=== PATIENT | female | born 1955 | race Caucasian/White ===

== ENCOUNTER 2018-05-25 08:48 | Inpatient (IN) | payer OTHER ==
[~2018-05-25] VITALS: Ht 172.7 cm; Wt 84.5 kg
[2018-05-25] MEDS ORDERED: NITROGLYCERIN SINGLE TAB 0.4 MG SL PRN (09:30)
[2018-05-25] MEDS ORDERED: SODIUM CHLORIDE FLUSH 10ML SYR IVF ONE (09:30)
[2018-05-25 09:51] LABS: BASOPHILS # (AUTO) 0.05 x10^3/uL (0-0.1); BASOPHILS % (AUTO) 1 % (0-1); EOSINOPHILS # (AUTO) 0.08 x10^3/uL (0-0.4); EOSINOPHILS % (AUTO) 1 % (1-7); LYMPHOCYTES # (AUTO) 2.67 x10^3/uL (1-3.4); LYMPHOCYTES % (AUTO) 37 % (22-44); MD NO; MEAN CORPUSCULAR HEMOGLOBIN 30.9 pg (27.0-34.8); MEAN CORPUSCULAR HGB CONC 34.5 g/dL (32.4-35.8); MEAN CORPUSCULAR VOLUME 89.5 fL (80-100); MEAN PLATELET VOLUME 8.9 fL (7.4-10.4); MONOCYTES # (AUTO) 0.41 x10^3/uL (0.2-0.8); MONOCYTES % (AUTO) 6 % (2-9); NEUTROPHILS # (AUTO) 3.97 x10^3/uL (1.8-6.8); NEUTROPHILS % (AUTO) 55 % (42-75); PLATELET COUNT 246 x10^3/uL (130-400); RED BLOOD COUNT 4.38 x10^6/uL (3.82-5.3); RED CELL DISTRIBUTION WIDTH 12.1 % (9.6-15.2)
[2018-05-25 09:57] LABS: ALBUMIN 3.8 g/dL (3.4-5.0); ANION GAP 10 mmol/L (5-15); CALCIUM 9.6 mg/dL (8.5-10.1); CHLORIDE 107 mmol/L (98-107); CREATININE 0.97 mg/dL (0.55-1.02)
[2018-05-25 10:00] LABS: TROPONIN I < 0.015 ng/mL (0.000-0.045)
[2018-05-25] MEDS ORDERED: MAALOX/HYOSCYAMINE/LIDOCAINE 45 ML BTL ONE (10:08)
[2018-05-25] MEDS ORDERED: MAALOX/HYOSCYAMINE/LIDOCAINE 45 ML BTL PO ONE (10:30)
[2018-05-25] MEDS ORDERED: blood pressure PO ×2 (10:50)
[2018-05-25] MEDS ORDERED: IBUP-1223 PO (10:50)
[2018-05-25 13:05] VITALS: BP 144/82
[2018-05-25] MEDS ORDERED: MULT-154 PO (13:19)
[2018-05-25] MEDS ORDERED: ACETAMINOPHEN 325 MG TABLET PO PRN (13:30)
[2018-05-25] MEDS ORDERED: NITROGLYCERIN 0.4 MG BOTTLE (25 TABS) SL PRN (13:30)
[2018-05-25] MEDS ORDERED: NITROGLYCERIN 0.4 MG/SPRAY SL PRN (13:30)
[2018-05-25] MEDS ORDERED: SENNA/DOCUSATE TABLET PO PRN (13:30)
[2018-05-25 15:35] LABS: TROPONIN I < 0.015 ng/mL (0.000-0.045)
[2018-05-25] MEDS: ENOXAPARIN 40 MG/0.4 ML SQ SCH (16:28)
[2018-05-25 19:30] VITALS: BP 138/82
[2018-05-25] MEDS ORDERED: MORPHINE SULFATE 4 MG/ML, 1ML IVPush PRN (20:00)
[2018-05-25] MEDS ORDERED: OMNIPAQUE 350 MG/ML, 100ML BOTTLE ONE (21:26)
[2018-05-26 01:46] VITALS: BP 110/64
[2018-05-26 05:35] LABS: ANION GAP 6 mmol/L (5-15); CALCIUM 9.2 mg/dL (8.5-10.1); CHLORIDE 105 mmol/L (98-107)
[2018-05-26 05:46] LABS: CREATININE 0.96 mg/dL (0.55-1.02)
[2018-05-26] MEDS ORDERED: BENAZEPRIL 10 MG TABLET ONE (08:00)
[2018-05-26 08:06] VITALS: BP 160/88
[2018-05-26] MEDS ORDERED: BENAZEPRIL 20 MG TABLET PO SCH (09:00)
[2018-05-26] MEDS: ENOXAPARIN 40 MG/0.4 ML SQ SCH (13:30)
[2018-05-26 14:14] VITALS: BP 118/75
[2018-05-26] MEDS ORDERED: CHLO25TA PO (15:11)
[2018-05-26] MEDS ORDERED: BENA20TA4 PO (15:11)
[2018-05-26] MEDS ORDERED: CHLORTHALIDONE 25 MG TABLET PO SCH (21:00)
== END 2018-05-26 17:05 | disposition home or self-care (01) | DRG 313 ==
LOC: ED 10:44 → EDIP 11:30 → 5SO 12:41 → DCLOUNGE 05-26 16:58
PROVIDERS: ADMIT Family Medicine; ATTEND Family Medicine
DX: R07.89 Other chest pain (principal); I25.110 Atherosclerotic heart disease of native coronary artery with unstable angina pectoris; E11.9 Type 2 diabetes mellitus without complications; F12.90 Cannabis use, unspecified, uncomplicated; I10 Essential (primary) hypertension; Z82.49 Family history of ischemic heart disease and other diseases of the circulatory system; Z87.891 Personal history of nicotine dependence; Z88.5 Allergy status to narcotic agent
CPT/HCPCS: 36415; 71045; 71275; 78452; 80048; 82040; 83690; 83735; 84100; 84443; 84484; 85025; 93005; 93017; 99285; J1650; Q9967; A9502; C9898